=== PATIENT | male | born 1960 | race Caucasian/White ===

== ENCOUNTER 2017-04-05 09:11 | Emergency (ER) | payer MEDICAID ==
[2017-04-05 09:23] VITALS: BP 156/81; PULSE 50; RESP 18; TEMP 98; O2SAT 99
[2017-04-05] MEDS ORDERED: Lidocaine/Epi 1% 1:100000 20 ML IJ ONE (09:31)
[2017-04-05] MEDS ORDERED: Lidocaine 1% Inj (20ml) ONE (09:37)
[2017-04-05] MEDS ORDERED: Lidocaine 2% w Epi 1:100,000 Inj IJ ONE (09:38)
[2017-04-05] MEDS ORDERED: Bacitracin 500 Units/gm Oint Foilpak UD ONE (09:46)
--- NOTE | 2017-04-05 09:49 | C.PDOC ---
History Of Present Illness 04/05/2017 Patient is a 57 year old male, whose past medical history includes hypothyroidism, presents to the emergency department complaining of a laceration on left side of his scalp prior to arrival. Patient reports he was in his garage on a ladder when suddenly a box that contained glass dishes fell on top of his head. Patient denies any loss of consciousness, no neck pain, and is not on blood thinners. Patient denies any vision changes, headache, fever or other complaints. Last tetanus shot > 5 yrs ago. PMD: Dr. Beach - [facility] Time Seen by Provider: 04/05/17 09:31 Chief Complaint (Nursing): Trauma History Per: Patient History/Exam Limitations: no limitations Injury Occurred (Timing): Just Before Arrival Location Of Injury: Left: Head (laceration) - Fall Fall:Prior To Injury: Other (glass dishes fell on top of patient's scalp) Past Medical History Reviewed: Historical Data, Nursing Documentation, Vital Signs Vital Signs: Last Vital Signs Temp 98.0 F 04/05/17 09:20 Pulse 50 L 04/05/17 09:20 Resp 18 04/05/17 09:20 BP 156/81 H 04/05/17 09:20 Pulse Ox 99 04/05/17 10:38 - Medical History PMH: Hypothyroidism Family History: States: Hypertension, Other Other Family History: Cancer - Social History Hx Tobacco Use: No Hx Alcohol Use: No Hx Substance Use: No - Immunization History Hx Tetanus Toxoid Vaccination: No Hx Influenza Vaccination: No Hx Pneumococcal Vaccination: No Review Of Systems Constitutional: Negative for: Fever Cardiovascular: Negative for: Chest Pain Respiratory: Negative for: Shortness of Breath Gastrointestinal: Negative for: Nausea, Vomiting Musculoskeletal: Negative for: Neck Pain Skin: Positive for: Other (laceration on left side of scalp) Neurological: Negative for: Confusion, Dizziness Physical Exam - Physical Exam Appears: Well, Non-toxic, No Acute Distress Skin: Normal Color, Warm, Dry Head: Normacephalic, Laceration (full thickness laceration, 6cm in length (no active bleeding) on left parietal area of scalp, no active bleeding) Eye(s): bilateral: Normal Inspection, PERRL, EOMI Ear(s): Bilateral: Normal Nose: Normal Oral Mucosa: Moist Lips: Normal Appearing Teeth: Normal Dentition Throat: Normal Neck: Normal, Normal ROM Lymphatic: Deferred Chest: Symmetrical Cardiovascular: Rhythm Regular Respiratory: Normal Breath Sounds Gastrointestinal/Abdominal: Normal Exam, Soft, No Tenderness Rectal: Deferred Back: Normal Inspection Extremity: Normal ROM Neurological/Psych: Oriented x3, Normal Speech, Normal Cognition, Normal Motor, Normal Sensation, Other (nonfocal exam) Gait: Steady ED Course And Treatment O2 Sat by Pulse Oximetry: 99 (room air) Pulse Ox Interpretation: Normal Medical Decision Making Medical Decision Making: Impression: 57 year old male with 6cm length, full thickness laceration on left parietal scalp. Plan: -- Adacel -- Lidocaine/Epi 1% -- Reassess and disposition Progress Notes: PROCEDURE: LACERATION REPAIR Performed by the emergency provider: Dr. Way Location: left parietal scalp Length: 6 cm Description: full thickness, clean wound edges, no foreign bodies Distal CMS: Normal. No deficits. Neurovascularly intact. Anesthesia: Lidocaine 2% with epinephrine Preparation: The wound was cleaned with NS and Bet[place]. The area was prepped and draped in the usual sterile fashion. Exploration: The wound was explored and no foreign bodies were found. Procedure: 8 jessica placed w/o difficulty and w/o complication Post-Procedure: Good closure and hemostasis. The patient tolerated the procedure well and there were no complications. CSM remains intact. Post procedure dressing applied. Re-evaluation: Discussed results and plan with patient. Patient understands results and is agreeable with plan. Patient was asked to follow up with PMD, otherwise come back to ED. All questions answered. Disposition Counseled Patient/Family Regarding: Diagnosis, Need For Followup - Disposition Disposition: HOME/ ROUTINE Disposition Time: 09:48 Condition: IMPROVED Additional Instructions: Mr. Pollard, thank you for letting us take care of you today. Return to the ER if any headache or worsening of symptoms, or if any problems. Your jessica need to be removed in 1 week. If your doctor cannot remove the jessica, then please come to the Emergency Department 1 week from today for staple removal. Take the antibiotic listed below to prevent any infection from developing. Prescriptions: Cephalexin [cephalexin] 1 tab PO BID #14 cap Instructions: Laceration (ED), Staple Care (ED) Forms: [facility] (Nepali), Gen Discharge Inst Khmer Print Language: ROMANIAN - POA Present On Arrival: None - Clinical Impression Clinical Impression: Laceration of scalp, Head trauma - Scribe Statement The provider has reviewed the documentation as recorded by the Scribe 04/05/2017 Scribe Attestation: Raissa Ramirez MD Scribe Attestation: All medical record entries made by the Scribe were at my direction and personally dictated by me. I have reviewed the chart and agree that the record accurately reflects my personal performance of the history, physical exam, medical decision making, and the department course for this patient. I have also personally directed, reviewed, and agree with the discharge instructions and disposition.
== END 2017-04-05 09:57 | disposition home or self-care (01) ==
LOC: C.ER 09:11
DX: S01.01XA Laceration without foreign body of scalp, initial encounter (principal); W22.8XXA Striking against or struck by other objects, initial encounter

== ENCOUNTER 2017-04-09 07:09 | Emergency (ER) | payer MEDICAID ==
[2017-04-09 07:19] VITALS: BP 132/75; PULSE 50; RESP 18; TEMP 98.1; O2SAT 99
--- NOTE | 2017-04-09 07:32 | C.PDOC ---
History Of Present Illness Patient presents for Staple removal from scalp (-) swelling, (-) discharge Time Seen by Provider: 04/09/17 07:22 Chief Complaint (Nursing): Suture/Staple Removal History Per: Patient History/Exam Limitations: no limitations Severity: None Past Medical History Reviewed: Historical Data, Nursing Documentation, Vital Signs Vital Signs: Last Vital Signs Temp 98.1 F 04/09/17 07:16 Pulse 50 L 04/09/17 07:16 Resp 18 04/09/17 07:16 BP 132/75 04/09/17 07:16 Pulse Ox 99 04/09/17 07:16 - Medical History PMH: Hypothyroidism Surgical History: No Surg Hx Family History: States: No Known Family Hx, Hypertension - Social History Hx Tobacco Use: No Hx Alcohol Use: No Hx Substance Use: No - Immunization History Hx Tetanus Toxoid Vaccination: No Hx Influenza Vaccination: No Hx Pneumococcal Vaccination: No Review Of Systems Constitutional: Negative for: Fever Skin: Positive for: Other (scalp laceration) Physical Exam - Physical Exam Appears: Well, Non-toxic Head: Laceration (healing scalp laceration with 8 jessica) Cardiovascular: Rhythm Regular Respiratory: Normal Breath Sounds Extremity: Normal ROM Neurological/Psych: Oriented x3 ED Course And Treatment O2 Sat by Pulse Oximetry: 99 Disposition - Disposition Referrals: [facility] [Outside] [facility] [Outside] Disposition: HOME/ ROUTINE Disposition Time: 07:40 Condition: STABLE Instructions: Stitches Removal (ED) Forms: [facility] (Upper Sorbian) - POA Present On Arrival: None - Clinical Impression Clinical Impression: Removal of suture
== END 2017-04-09 07:45 | disposition home or self-care (01) ==
LOC: C.ER 07:09
DX: Z48.02 Encounter for removal of sutures (principal)